=== PATIENT | female | born 1950 ===

== ENCOUNTER 2022-02-26 05:38 | Day surgery (SDC) | payer OTHER ==
[~2022-02-26 05:38] MED LIST: LEVO-T75 MCG PO; LYRICA200 MG PO; MULTIPLE VITAM1 EAC2 PO; PROTONIX40 MG PO; SIMVASTATIN5 MG PO; VENLAFAXINE H37.5 M2 PO
== END 2022-02-26 13:05 | disposition home or self-care (01) ==
LOC: CIR.AMB 05:38
PROVIDERS: ATTEND Surgery Surgery of the Hand
DX: M19.041 Primary osteoarthritis, right hand (principal); Z20.822 Contact with and (suspected) exposure to COVID-19; Z88.8 Allergy status to other drugs, medicaments and biological substances; E78.5 Hyperlipidemia, unspecified; M79.7 Fibromyalgia
CPT/HCPCS: 26536; L8699